=== PATIENT | female | born 2000 | race Caucasian/White ===

== ENCOUNTER 2019-07-21 19:55 | Emergency (ER) | payer OTHER ==
[2019-07-21] MEDS ORDERED: NS 0.9% 1000 ML** 2,000 ML IV ONE (20:11)
--- NOTE | 2019-07-21 20:37 | ED ---
Complex/Multi-Sys Presentation - HPI Summary HPI Summary: Patient is a 18 y/o F w/ Median Arcuate Ligment Syndrome who presents to [facility] with complaints of upper abdominal pain, decreased PO intake and N/V. Patient was only able to have a bottle of Gatorade today, 07/21/19. She states that she has had these Sx intermittently since February 2019. Patient had been evaluated by specialist in [place], CTA was done and patient was diagnosed with Median Arcuate Ligment Syndrome. Mother reports that celiac plexus block is to be done, which will determine whether or not patient is appropriate for surgery. PCP was called, it was advised that the patient be brought to an ED for re-hydration. Family is visiting son in [place] until 07/24/19. They are originally from [place]. Mother also notes that the patient experienced a localized sharp pain at her RUQ that onset last night, 07/20/19, which is new. On triage, pain is rated 7/10. Home medications and allergies are reviewed. - History Of Current Complaint Chief Complaint: EDAbdPain Time Seen by Provider: 07/21/19 20:31 Hx Obtained From: Patient Onset/Duration: Still Present Timing: Constant Severity Currently: Severe Location: Pain At: - upper abdomen Character: Sharp Associated Signs And Symptoms: Positive: Nausea, Vomiting, Abdominal Pain, Other - positive - decreased PO intake. Negative: Fever - Allergies/Home Medications Allergies/Adverse Reactions: Allergies Allergy/AdvReac Type Severity Reaction Status Date / Time No Known Allergies Allergy Verified 07/21/19 20:02 PMH/Surg Hx/FS Hx/Imm Hx Cardiovascular History: Reports: Other Cardiovascular Problems/Disorders - Median Arcuate Ligment Syndrome Sensory History: Denies: Hx Legally Blind, Hx Deafness Opthamlomology History: Denies: Hx Legally Blind EENT History: Denies: Hx Deafness Infectious Disease History: No Infectious Disease History: Denies: Traveled Outside the [place] in Last 30 Days - Family History Known Family History: Positive: Other - no FMHx of Median Arcuate Ligment Syndrome - Social History Alcohol Use: None Substance Use Type: Reports: None Smoking Status (MU): Never Smoked Tobacco Review of Systems Negative: Fever - on vitals, temp is 97.9 F Gastrointestinal: Other - positive - decreased PO intake Positive: Abdominal Pain, Vomiting, Nausea All Other Systems Reviewed And Are Negative: Yes Physical Exam - Summary Physical Exam Summary: Appearance: Well-appearing, Well-nourished, lying in bed comfortably Skin: Warm, dry, no obvious rash Eyes: sclera anicteric, no conjunctival pallor ENT: mucous membranes moist, pharynx appears normal Neck: Supple, nontender Respiratory: Clear to auscultation, no signs of respiratory distress Cardiovascular: Normal S1, S2. No murmurs. Normal distal pulses in tibial and radial bilaterally. Abdomen: Soft, some upper abdominal tenderness without peritoneal signs noted, normal active bowel sounds present Musculoskeletal: Normal, Strength/ROM Intact Neurological: A&Ox3, awake and alert, mentation is normal, speech is fluent and appropriate Psychiatric: affect is normal, does not appear anxious or depressed Triage Information Reviewed: Yes Vital Signs On Initial Exam: Initial Vitals Temp Pulse Resp BP Pulse Ox 97.9 F 115 16 128/88 97 07/21/19 19:56 07/21/19 19:56 07/21/19 19:56 07/21/19 19:56 07/21/19 19:56 Vital Signs Reviewed: Yes Procedures - Sedation Patient Received Moderate/Deep Sedation with Procedure: No Diagnostics - Vital Signs Vital Signs Temp Pulse Resp BP Pulse Ox 07/21/19 19:56 97.9 F 115 16 128/88 97 - Laboratory Result Diagrams: 07/21/19 22:14 07/21/19 22:14 Lab Statement: Any lab studies that have been ordered have been reviewed, and results considered in the medical decision making process. Re-Evaluation - Re-Evaluation First Eval Re-Evaluation Time: 22:47 Change: Improved Comment: Patient reports improvement in Sx with medications, she states that she wants to be discharged at this time. Patient was discharged to home. Complex Multi-Symp Course/Dx Course Of Treatment: Patient is a 18 y/o F w/ Median Arcuate Ligment Syndrome who presents to [facility] with complaints of upper abdominal pain, decreased PO intake and N/V. Patient was only able to have a bottle of Gatorade today, . She states that she has had these Sx intermittently since February 2019. Patient had been evaluated by specialist in [place], CTA was done and patient was diagnosed with Median Arcuate Ligment Syndrome. Mother reports that celiac plexus block is to be done, which will determine whether or not patient is appropriate for surgery. PCP was called, it was advised that the patient be brought to an ED for re-hydration. Family is visiting son in [place]. They are originally from [place]. Mother also notes that the patient experienced a localized sharp pain at her RUQ that onset last night, 07/20/19, which is new. On physical exam, some upper abdominal tenderness without peritoneal signs noted. Bloodwork was obtained and within normal limits with exception of Hgb 11.6, Hct 34, MPV 6.6, BUN/creatinine ratio 23, glucose 209, total protein 5.7, lipase 210. During ED course, patient received D5LR. Patient reports improvement in Sx with medications, she states that she wants to be discharged at this time. Patient was discharged to home. She will follow up with her specialist [place]. UA showed 1+ blood, 3+ leukocyte esterase, 3+ WBC, 1+ RBC, 3 + bacteria, 3+ glucose, squamous epith cells present. - Diagnoses Provider Diagnoses: Median arcuate ligament syndrome Discharge ED - Sign-Out/Discharge Documenting (check all that apply): Patient Departure - discharge - Discharge Plan Condition: Stable Disposition: HOME Patient Education Materials: Chronic Abdominal Pain (ED) Referrals: No Primary Care Phys,NOPCP [Primary Care Provider] - Additional Instructions: Hopefully we've gotten you "tanked up" to get through the holidays better. I hope that your doctor in [place] can get a resolution to this problem for you. If you have further problems while you're here in [place] we are always here to help with what we can. - Billing Disposition and Condition Condition: STABLE Disposition: Home - Attestation Statements Document Initiated by Harry: Yes Documenting Scribe: SHARON DELUNA Provider For Whom Harry is Documenting (Include Credential): FLORA OBRIEN MD Scribe Attestation: I, SHARON DELUNA, scribed for FLORA OBRIEN MD on 07/26/19 at 0631. Scribe Documentation Reviewed: Yes Provider Attestation: The documentation as recorded by the SHARON gutiérrez accurately reflects the service I personally performed and the decisions made by me, FLORA OBRIEN MD Status of Scribe Document: Viewed
[2019-07-21] MEDS: Ondansetron INJ* 2 MG/ML VIAL IV ONE ×2 (20:52→22:51)
[2019-07-21] MEDS ORDERED: D5LR 1000 ML BAG* 1,000 ML IV ONE ×2 (21:00)
[2019-07-21 22:20] LABS: ABS Eosinophils 0.1 10^3/ul (0-0.6); ABS Monocytes 0.5 10^3/ul (0-0.8); ABS Neutrophils 4.4 10^3/ul (1.5-7.7); Eosinophil % 1.8 %; Hematocrit 34 % (35-47); Hemoglobin 11.6 g/dL (12.0-16.0); Lymphocyte % 16.2 %; Mean Corpuscular HGB Conc 34 g/dL (31-36); Mean Corpuscular Hemoglobin 30 pg (27-31); Mean Corpuscular Volume 87 fL (80-97); Mean Platelet Volume 6.6 fL (7.4-10.4); Platelet Count 195 10^3/uL (150-450); Red Blood Count 3.94 10^6 /uL (3.70-4.87); Red Cell Distribution Width 13 % (10-15)
[2019-07-21 22:38] LABS: ALT 14 U/L (7-52); AST 14 U/L (13-39); Albumin 3.5 g/dL (3.2-5.2); Albumin/Globulin Ratio 1.6 (1-3); Alkaline Phosphatase 53 U/L (34-104); Anion Gap 5 mmol/L (2-11); Blood Urea Nitrogen 14 mg/dL (6-24); C Reactive Protein 2.32 mg/L (<8.01); CO2 Carbon Dioxide 28 mmol/L (22-32); Calcium 9.1 mg/dL (8.6-10.3); Chloride 103 mmol/L (101-111); EGFR African American 152.9 (>60); EGFR Non-African American 126.4 (>60); Globulin 2.2 g/dL (2-4); Glucose 209 mg/dL (70-100); Potassium 3.6 mmol/L (3.5-5.0); Sodium 136 mmol/L (135-145); Total Protein 5.7 g/dL (6.4-8.9)
[2019-07-21 22:45] LABS: HCG Pregnancy < 0.60 mIU/mL
[2019-07-21 22:54] LABS: Urine Appearance Turbid; Urine Bilirubin Negative (Negative); Urine Blood 1+ (Negative); Urine Color Yellow; Urine Glucose 3+(>=500 mg/dL) (Negative); Urine Ketones Negative (Negative); Urine Nitrite Negative (Negative); Urine Protein Negative (Negative); Urine Specific Gravity 1.008 (1.010-1.030); Urine Urobilinogen Negative (Negative)
[2019-07-21 23:01] VITALS: BP 126/75
[2019-07-21 23:16] LABS: Urine Bacteria 3+ (Absent); Urine Red Blood Cell 1+(3-5/hpf) (Absent); Urine Squamous Epithelial Cell Present (Absent); Urine White Blood Cell 3+(>20/hpf) (Absent)
== END 2019-07-21 22:59 | disposition home or self-care (01) ==
LOC: ED 19:55
DX: I77.4 Celiac artery compression syndrome (principal)
CPT/HCPCS: 36415; 80053; 81003; 81015; 83690; 84702; 85025; 86140; 87086; 96361; 96374; 99282; J2405